=== PATIENT | male | born 1995 | race Caucasian/White ===

== ENCOUNTER 2018-09-24 23:25 | Emergency (ER) | payer BC, OTHER ==
[~2018-09-24] VITALS: Ht 185.4 cm; Wt 79.8 kg
[2018-09-24 23:34] VITALS: Ht 185.4 cm; Wt 79.8 kg
[2018-09-25 01:31] VITALS: BP 139/80
== END 2018-09-25 01:32 | disposition home or self-care (01) ==
LOC: ED 23:25
DX: K21.9 Gastro-esophageal reflux disease without esophagitis (principal)
CPT/HCPCS: Q0092